=== PATIENT | male | born 2005 | race Caucasian/White ===

== ENCOUNTER 2025-05-05 23:14 | Emergency (ER) | payer SELFPAY | END 2025-05-06 05:05 | disposition home or self-care (01) | LOC: CSHERS 23:14 | DX: S32.049A Unspecified fracture of fourth lumbar vertebra, initial encounter for closed fracture (principal); V80.018A Animal-rider injured by fall from or being thrown from other animal in noncollision accident, initial encounter | CPT/HCPCS: 72131 ==